=== PATIENT | male | born 2000 | race African-American/Black ===

== ENCOUNTER 2019-01-25 11:12 | Emergency (ER) | payer OTHER ==
[2019-01-25] MEDS ORDERED: Adacel (T-DAP) 0.5 ML SYRINGE ONE (11:56)
--- NOTE | 2019-01-25 12:59 | RAD ---
RIGHT WRIST THREE VIEWS: 01/25/19 HISTORY: Pain. Fall. COMPARISON: None. FINDINGS: Intercarpal and radiocarpal joint space is preserved. No fracture. No cortical irregularity or perios teal reaction. IMPRESSION: No posttraumatic sequela in the right wrist. POS: TPC
--- NOTE | 2019-01-25 13:16 | CT ---
CT HEAD WITHOUT CONTRAST: Axial tomograms are obtained without IV enhancement. INDICATION: Fall. Injury to head. History of loss of consciousness. FINDINGS: Ventricles have normal size and position. There is no evidence of intracranial hemorrhage. No evide nce of mass or edema. Sinuses and mastoids are well aerated. IMPRESSION: No acute intracranial abnormality identified. POS: OFF
== END 2019-01-25 12:32 | disposition home or self-care (01) ==
LOC: SCSER 11:12
DX: S02.2XXA Fracture of nasal bones, initial encounter for closed fracture (principal); S01.21XA Laceration without foreign body of nose, initial encounter; F32.9 Major depressive disorder, single episode, unspecified; F17.290 Nicotine dependence, other tobacco product, uncomplicated; V00.131A Fall from skateboard, initial encounter
CPT/HCPCS: 12011; 70450; 90471; 90715

== ENCOUNTER 2019-01-26 12:04 | Emergency (ER) | payer OTHER ==
--- NOTE | 2019-01-26 12:53 | CT ---
CT Facial Bones WO Con HISTORY: Facial injury after falling off of a skateboard. COMPARISON: None. FINDINGS: There are minimally displaced fractures involving the nasal bone. There also appears to be a fracture involving the nasal septum. The septum is deviated to the right. The zygomatic arches are intact and pterygoid processes are intact. There is mucosal disease within t he ethmoid air cells and left maxillary sinus but no air-fluid levels are identified. There is no evidence of orbital or maxillary fractures. There is motion artifact related to the mandible but no definite fractures are seen. The condyles are in normal position. IMPRESSION: Minimally displaced nasal bone fractures. Also a fracture through the bony nasal septum.
== END 2019-01-26 13:18 | disposition home or self-care (01) ==
LOC: SCSER 12:04
DX: S02.2XXA Fracture of nasal bones, initial encounter for closed fracture (principal); S05.02XA Injury of conjunctiva and corneal abrasion without foreign body, left eye, initial encounter; F32.9 Major depressive disorder, single episode, unspecified; F17.290 Nicotine dependence, other tobacco product, uncomplicated; V00.131A Fall from skateboard, initial encounter
CPT/HCPCS: 70486